=== PATIENT | male | born 1965 | race Caucasian/White ===

== ENCOUNTER 2025-09-03 09:50 | Outpatient (AMB) | payer BC, SELFPAY ==
--- NOTE | 2025-09-03 10:00 | MHC.PC.OV ---
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 Accompanied by: Self / Same As Patient Allergies No Known Allergies Allergy (Verified 09/03/25 10:15) Medication List - Last Reconciled 09/03/25 by Nemesio Hayes MD aspirin 81 mg PO DAILY cetirizine 10 mg PO DAILY PRN evolocumab (Repatha SureClick) 140 mg subcut Q2W ezetimibe 10 mg PO DAILY modafinil 200 mg PO DAILY PRN multivitamin 1 tab PO DAILY ramipril 5 mg PO BID tadalafil (Cialis) 10 mg PO DAILY PRN testosterone cypionate 100 mg IM QWEEK Tobacco use date assessed: 09/03/25 Dental Screening Dental Screen Date: 09/03/25 Did you have a dental visit in the last 12 months?: Yes Was dental information given to patient?: Patient has dentist HPI HPI Comments History of Present Illness Details History of Present Illness The patient is a 60-year-old male presenting to establish care and address concerns regarding testosterone replacement therapy continuation. Hypogonadism: The condition was detected after a history of bodybuilding and anabolic steroid use. The patient began testosterone replacement therapy in his mid-40s and is currently managed on 100 mg weekly injections, which typically maintains testosterone levels between 600-800 ng/dL. However, a recent lack in dosing schedule briefly dropped his testosterone levels to approximately 480 ng/dL. He is worried about his therapy because previous providers redirected this management to urology due to potential risks. Dyslipidemia with Hypercholesterolemia: The patient's cholesterol levels were previously recorded above 200 mg/dL. A coronary calcium score, obtained 2-3 years ago, showed significant plaque accumulation, particularly in the LAD artery. Statin treatment led to debilitating joint pain, and genetic testing later contraindicated their use. The patient experiences good lipid control with Repatha and ezetimibe, with his cholesterol reportedly bulletproof. Coronary Artery Disease: Concern emerges particularly from the high coronary calcium score in the LAD. Despite this, recent stress testing has not revealed any ischemic events. 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 He has scheduled a home sleep study following recommendations linking potential sleep disturbances to cardiac hypertrophy. Psoriasis: The patient reports low-grade psoriasis, primarily affecting his feet during winter months. Symptomatic relief has historically been achieved with steroid ointments, though no recent intervention has been necessary due to improvement with stress reduction and sun exposure. History of Melanoma: Experienced a prior melanoma on the nose, requiring surgical intervention. The patient remains vigilant with quarterly dermatological screenings to monitor for any recurrence. Hypertension: Under the management of ramipril, with no mentioned concerns regarding control or adverse drug reactions. Surgical History: - Cervical microdiscectomy in the early - Lumbar back fusion (L5-S1) in 1999 - Right knee meniscus surgery in 2021 or 2022 - Melanoma surgery on the nose Medications: - Aspirin: 81 mg daily for cardiovascular risk reduction - Cetirizine: 10 mg daily for allergic rhinitis - Repatha: Bi-weekly injection for dyslipidemia - Ezetimibe: 10 mg daily for dyslipidemia - Multivitamin for general health - Ramipril: for hypertension - Testosterone cypionate: 100 mg weekly injection for hypogonadism - Zolpidem: PRN (infrequently for sleep disturbances) - CoQ10 for potential cardioprotective effects Social History: - Alcohol Use: Socially - Tobacco Use: Never smoked - Recreational Drug Use: No current use; history of marijuana use at age 15 - 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 [employer] - 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; 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 - Family/Relationships: with two biological children and two stepchildren Family History: - Father: , old age and dementia - Mother: , unspecified reasons - Siblings: Reports good health Diagnostic Results: - Labs: Full blood work from April available via [facility]; testosterone noted at 480 ng/dL due to dosing interruption - Coronary Calcium Score: High score, particularly in the LAD, 2-3 years ago - Stress Test: Recent tests in [place] were clear - Statin Genetic Test: Positive for statin intolerance Past Medical History - 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 - Hypogonadism - History of nasal melanoma - Coronary artery disease with elevated calcium score - Benign intermittent atrial tachycardia - Cardiac hypertrophy - Sleep disorders linked to shift work - Psoriasis - Statin-induced arthralgias - Hypertension Health Maintenance - Colonoscopy: Last completed at age 53, repeat due - Skin Cancer Screening: Quarterly skin checks for melanoma history - Blood Monitoring: Bi-annual blood work for testosterone and H&H levels - Scheduled Sleep Study: Home study this week for potential apnea concerns - Blood Donation: Contingent upon elevated hemoglobin/hematocrit [facility] [place] Medical History (Updated 09/03/25 @ 19:14 by Nemesio Hayes MD) History of melanoma Psoriasis Shift work sleep disorder Hypogonadism in male History of anabolic steroid use Hypertension Cardiac hypertrophy Suspected sleep apnea Long-term current use of testosterone cypionate Family History (Updated 09/03/25 @ 10:31 by Char Cadena [facility]) Mother COPD (chronic obstructive pulmonary disease) Father Dementia Social History Housing: House Patient Tobacco Use Status: Never used Tobacco e-Cigarette/Vaping Use: Never Used service: No Current occupational status: employed Cognitive needs: No Hearing needs: No Vision needs: Yes (glasses) Questionnaire PHQ-9 Over the last 2 weeks, how often have you been bothered by any of the following problems? 1. Little interest or pleasure in doing things: not at all 2. Feeling down, depressed, or hopeless: not at all 3. Trouble falling or staying asleep, or sleeping too much: not at all 4. Feeling tired or having little energy: not at all 5. Poor appetite or overeating: not at all 6. Feeling bad about yourself - or that you are a failure or have let yourself or your family down: not at all 7. Trouble concentrating on things, such as reading the newspaper or watching television: not at all 8. Moving or speaking so slowly that other people could have noticed. Or the opposite - being so fidgety or restless that you have been moving around a lot more than usual: not at all 9. Thoughts that you would be better off or of hurting yourself in some way: not at all Total score: 0 Depression Screening Interpretation: Negative Depression Screening Done: Yes Source: Developed by Drs. Kimani Moreno, Tiffany Jaramillo, Brooks Hernandez and colleagues, with an educational mateus from [employer]. Thrive Questionnaire Date Thrive assessed: 09/03/25 I am a: Patient What is your living situation today?: I have a steady place to live Within the past 12 months, did the food you bought not last and you didn't have the money to get more?: Never true Within the past 12 months, did you worry whether your food would run out before you got money to buy more?: Never true Do you have trouble paying for medicines?: No Do you have trouble getting transportation to medical appointments?: No Do you have trouble paying your heating and electricity bill?: No Do you have trouble taking care of your child, family member or friend?: No Are you currently unemployed and looking for a job?: No Are you interested in more education?: Yes Please select the resources that you would like help with: None Currently or been in a relationship where the following occur: No concerns reported THRIVE Score: 0 AUDIT C Alcohol Use Questionnaire (AUDIT-C) 1. How often do you have a drink containing alcohol?: 2-4 times a month 2. How many drinks containing alcohol do you have on a typical day when you are drinking?: 1 or 2 3. How often do you have six or more drinks on one occasion?: Never Total Score: 2 AG-7 AMB Questionnaire AG-7 Date AG - 7 assessed: 09/03/25 Feeling nervous, anxious, or on edge: 0 = Not at all Not being able to stop or control worryin = Not at all Worrying too much about different things: 0 = Not at all Trouble relaxin = Not at all Being so restless that it is hard to sit still: 0 = Not at all Becoming easily annoyed or irritable: 0 = Not at all Feeling afraid as if something awful might happen: 0 = Not at all Total AG-7 score (0-4 normal; 5-9 mild; 10-14 moderate; 15-21 severe): 0 Source: Developed by Drs. Kimani Moreno, Tiffany Jaramillo, Brooks Hernandez and colleagues, with an educational mateus from [employer]. Review of Systems Narrative Review of Systems - Cardiovascular: Reports benign intermittent atrial tachycardia and cardiac hypertrophy - Integumentary: Reports seasonal low-grade psoriasis - Musculoskeletal: Denies joint swelling or pain; reports past arthralgias with atorvastatin use - Neurological/Sleep: Reports disturbed sleep attributed to shift work - Gastrointestinal: Regular bowel movements reported - Genitourinary: No urinary symptoms reported 10-point ROS reviewed and negative except as noted in HPI Physical exam (Primary Care) Vital Signs: Last Vital Signs Temp 98.3 F 09/03/25 10:17 Pulse 62 09/03/25 10:17 BP 116/72 09/03/25 10:17 Pulse Ox 99 09/03/25 10:17 Oxygen Delivery Method Room Air 09/03/25 10:17 BMI result Body Mass Index 31.6 Tobacco/Smoking Status: Tobacco use Status Tobacco use date assessed 09/03/25 09/03/25 10:01 Patient Tobacco Use Status Never used Tobacco 09/03/25 10:01 e-Cigarette/Vaping Use Never Used 09/03/25 10:01 PHQ-9: PHQ-9 Score PHQ-9: Total score 0 09/03/25 11:11 Depression Screening Interpretation: Negative Thrive Assessment: Date of Thrive Assessment Date Thrive assessed 09/03/25 09/03/25 10:01 Currently or been in a relationship where the following occur: No concerns reported Narrative Physical Exam General: Well-appearing, in no acute distress. Vital signs: Within normal limits. HEENT: Normocephalic, atraumatic. PERRLA, EOMI. Conjunctiva clear, sclera anicteric. Oropharynx clear, mucous membranes moist. TMs intact bilaterally. Neck: Supple, no lymphadenopathy, no thyromegaly, no JVD or carotid bruits. Cardiovascular: RRR, normal S1/S2, no murmurs, rubs, or gallops. Peripheral pulses 2+ and symmetric. No edema. Intermittent atrial tachycardia noted, benign. Ultrasound showed small amounts of hypertrophy, possibly related to sleep apnea. Respiratory: Lungs clear to auscultation bilaterally, no wheezes, rales, or rhonchi. Normal effort. Abdomen: Soft, non-tender, non-distended. Normoactive bowel sounds. No hepatosplenomegaly, no masses. MSK: Full range of motion, no joint swelling or deformity. Normal gait. History of lumbar back fusion L5-S1 in 2021 and right knee meniscus surgery in 2023. Skin: Warm, dry, intact. No rashes, lesions, or pallor. Psoriasis noted, low grade, usually on the bottoms of feet in winter. History of melanoma surgery in 2024 with graft on nose. Neuro: Alert and oriented x3. Cranial nerves II-XII intact. Strength 5/5 throughout. Sensation intact. Reflexes 2+ symmetric. Normal coordination and gait. Psych: Appropriate mood and affect. Normal judgment and insight. Office Procedures Flu Questionnaire Does the patient have a severe egg allergy?: No Does the patient have severe life threatening allergies?: No Does the patient have a fever or illness today?: No Has the patient ever had Guillain-Hallam Syndrome?: No Has the patient ever had any past reaction to a flu shot?: No Immunizations Fluarix [id number] (PF) 45 mcg (15 mcg x 3)/0.5 mL IM syringe Performing Provider: Nemesio Hayes MD Performing Location: [facility] Documented (not given) by: Char Cadena CMA on 09/03/25 10:25 Reason Not Given: Received Previously Coding Level of Care Code New Pt Level 4 (03859) Diagnoses Long-term current use of testosterone cypionate Z79.890 Suspected sleep apnea R29.818 Cardiac hypertrophy I51.7 Hypertension I10 History of anabolic steroid use Z92.241 Hypogonadism in male E29.1 Shift work sleep disorder G47.26 Psoriasis L40.9 History of melanoma Z85.820 Assessment & Plan Assessment & Plan (1) Long-term current use of testosterone cypionate: Code(s): Z79.890 - Hormone replacement therapy Category: Medical (2) Suspected sleep apnea: Code(s): R29.818 - Other symptoms and signs involving the nervous system Category: Medical (3) Cardiac hypertrophy: Code(s): I51.7 - Cardiomegaly Category: Medical (4) Hypertension: Code(s): I10 - Essential (primary) hypertension Category: Medical (5) History of anabolic steroid use: Code(s): Z92.241 - Personal history of systemic steroid therapy Category: Medical (6) Hypogonadism in male: Code(s): E29.1 - Testicular hypofunction Category: Medical (7) Shift work sleep disorder: Code(s): G47.26 - Circadian rhythm sleep disorder, shift work type Category: Medical (8) Psoriasis: Code(s): L40.9 - Psoriasis, unspecified Category: Medical (9) History of melanoma: Code(s): Z85.820 - Personal history of malignant melanoma of skin Category: Medical Plan Consent Informed consent was obtained for the referral to a urology specialist for the evaluation and clearance of continued testosterone therapy. I explained the necessity of this consultation for medicolegal purposes, highlighting the importance of urologist evaluation in cases of Erythrocytosis, Worsening untreated BAYLEE, infertility, edema/heart failure exacerbation, prostate effects He verbally confirmed understanding and agreement with this approach. Patient was informed and verbally consented to the use of an ambient scribe for clinic note documentation during this visit. Plan 1. Hypogonadism - Continued testosterone cypionate at 100 mg weekly pending urology clearance - Referral to urology for specialist evaluation and clearance - Future management contingent upon completed urological assessment - Bi-annual labs to monitor testosterone, H&H levels 2. Shift Work Sleep Disorder - Home sleep study scheduled to explore potential sleep disruptions linked to shift work - Limit zolpidem use due to non-restorative sleep effects Discussion Notes I explained the necessity of a urology consult to the patient for safe and continued management of his testosterone replacement therapy, focusing on minimizing risks like thrombosis. We discussed his present lipid management strategy post-statin intolerance, reaffirming its efficacy and safety. I emphasized the importance of the scheduled home sleep study to investigate his disturbed sleep and its possible contribution to cardiac hypertrophy. The patient was informed to avoid zolpidem, as it does not support healing sleep patterns. Patient Instructions - Complete the upcoming home sleep study - Schedule and attend the urology appointment - Provide recent blood work results for review - Avoid using zolpidem for regular sleep assistance - Return for follow-up as needed, especially after seeing the urologist Medical Decision Making This patient's hypogonadism, due to prior anabolic steroid exposure, necessitates continuation of testosterone therapy, albeit under specialist validation for safe management considering potential circulatory risks. Management of his cholesterol through combined pharmacotherapy suits his genetic disposition, optimizing cardiovascular health despite previous statin intolerance. Following up on his disrupted sleep via structured evaluation helps elucidate the role of sleep in his cardiac hypertrophy. My management plan is constructed to align with standard practices while accommodating the specifics of the patient's profile. Total Time Statement 30 min Total time spent caring for the patient today includes pre-visit chart review, documentation, review of laboratory and diagnostic imaging results, medication reconciliation, medically necessary evaluation, counseling on diagnoses, care coordination, ordering appropriate tests and medications, review of tests performed by other providers, reporting test results to the patient, and communication with other healthcare providers. Orders: Orders Influenza [id number] Immunization Today Z23 - Encounter for immunization Referrals Urology Referral Z79.890 - Hormone replacement therapy
[2025-09-03 10:17] VITALS: BP 116/72; PULSE 62; TEMP 36.8; O2SAT 99; BMI 31.6
== END 2025-09-03 11:10 | disposition home or self-care (01) ==
LOC: HO.HMCFMS 09:51
PROVIDERS: PCP Student in an Organized Health Care Education/Training Program; Visit Provider Student in an Organized Health Care Education/Training Program
DX: Z79.890 Hormone replacement therapy (principal); R29.818 Other symptoms and signs involving the nervous system; I51.7 Cardiomegaly; I10 Essential (primary) hypertension; Z92.241 Personal history of systemic steroid therapy; E29.1 Testicular hypofunction; G47.26 Circadian rhythm sleep disorder, shift work type; L40.9 Psoriasis, unspecified; Z85.820 Personal history of malignant melanoma of skin; Z23 Encounter for immunization

== ENCOUNTER → 2025-09-03 09:50 | Outpatient (BNVA) | payer BC, SELFPAY | PROVIDERS: Visit Provider Student in an Organized Health Care Education/Training Program | DX: R29.818 Other symptoms and signs involving the nervous system (principal); I51.7 Cardiomegaly; I10 Essential (primary) hypertension; E29.1 Testicular hypofunction; L40.9 Psoriasis, unspecified; G47.26 Circadian rhythm sleep disorder, shift work type; Z85.820 Personal history of malignant melanoma of skin; Z92.241 Personal history of systemic steroid therapy; Z79.890 Hormone replacement therapy | CPT/HCPCS: 90471 ==